=== PATIENT | male | born 1970 | race Caucasian/White ===

== ENCOUNTER 2016-12-25 06:33 | Emergency (ER) | payer BC, OTHER ==
[2016-12-25] MEDS ORDERED: MECLIZINE 12.5 MG TAB PO STA (07:40)
--- NOTE | 2016-12-25 07:45 | ED ---
Dizziness HPI - General Chief Complaint: Dizziness Stated Complaint: Dizziness Time Seen by Provider: 12/25/16 06:59 Source: patient, RN notes reviewed Mode of arrival: ambulatory Limitations: no limitations - History of Present Illness Initial Comments: This patient is a 46-year-old man who is complaining of what he is referring to as lightheadedness. In attempt to clarify that his symptoms, the patient was asked if she feels like he is going to pass out or his vision changes any states that no he does not feel like this, it is more of an off balance type of feeling. The patient states that it has come on over the past day, or perhaps to. The patient states that symptoms are mainly present when he sits up or looks up. He states he'll feel off balance, what he is calling lightheaded, though by his history seems more consistent with vertigo. The symptoms are better if he is lying still, and again provoked by position change. Patient states that about a week ago he did have preceding "head cold" with some congestion of his left ear. He states that the symptoms seem to be improving. MD Complaint: dizziness -: days(s) Timing: gradual onset Description: sense of movement, off-balance History of Same: No History of Trauma: No Severity: moderate Improves With: remaining still Worsens With: movement, position Associated Symptoms: denies other symptoms - Related Data Previous Rx's Medication Instructions Recorded Meclizine [Antivert] 25 mg PO TID #30 tab 12/25/16 Allergies Allergy/AdvReac Type Severity Reaction Status Date / Time tetracycline AdvReac Intermediate Anaphylaxis Verified 12/25/16 06:51 Review of Systems ROS Statement: Those systems with pertinent positive or pertinent negative responses have been documented in the HPI. ROS Other: All systems not noted in ROS Statement are negative. Constitutional: Denies: fever, chills, weakness Eyes: Denies: eye pain, vision change ENT: Reports: as per HPI. Denies: ear pain, throat pain, hearing loss, congestion Respiratory: Denies: cough, dyspnea, wheezes Cardiovascular: Denies: chest pain, palpitations, edema, syncope Gastrointestinal: Denies: abdominal pain, vomiting, diarrhea Musculoskeletal: Denies: back pain Skin: Denies: rash Neurological: Reports: vertigo. Denies: headache, weakness, numbness, confusion Past Medical History Past Medical History: Hypertension History of Any Multi-Drug Resistant Organisms: None Reported Past Psychological History: No Psychological Hx Reported Smoking Status: Never smoker Past Alcohol Use History: Occasional Past Drug Use History: None Reported General Exam Limitations: no limitations General appearance: alert, in no apparent distress Head exam: Present: atraumatic, normocephalic, normal inspection Eye exam: Present: normal appearance, PERRL, EOMI. Absent: scleral icterus, conjunctival injection ENT exam: Present: normal oropharynx, mucous membranes moist, TM's normal bilaterally, normal external ear exam Neck exam: Present: normal inspection, full ROM. Absent: tenderness, meningismus Respiratory exam: Present: normal lung sounds bilaterally. Absent: respiratory distress, wheezes, rales, rhonchi, stridor Cardiovascular Exam: Present: regular rate, normal rhythm, normal heart sounds. Absent: systolic murmur, diastolic murmur, rubs, gallop GI/Abdominal exam: Present: soft. Absent: distended, tenderness, guarding, rebound, mass, pulsatile mass, hernia Extremities exam: Present: normal inspection, normal capillary refill. Absent: pedal edema, calf tenderness Back exam: Present: normal inspection. Absent: CVA tenderness (R), CVA tenderness (L) Neurological exam: Present: alert, oriented X3, CN II-XII intact. Absent: motor sensory deficit Skin exam: Present: warm, dry, intact, normal color. Absent: rash Course Vital Signs 12/25/16 12/25/16 12/25/16 06:39 07:47 09:13 Temperature 97.0 F L 97.9 F Pulse Rate 56 L 52 L 52 L Respiratory 20 18 16 Rate Blood Pressure 162/85 141/88 138/87 O2 Sat by Pulse 98 96 98 Oximetry EKG Findings - EKG Results: EKG: interpreted by MARTI BANKS, sinus rhythm, normal axis, normal QRS, normal ST/ T, no acute changes EKG shows: bradycardia (Rates 53 bpm) Medical Decision Making - Lab Data Result diagrams: 12/25/16 06:54 12/25/16 06:54 Lab Results 12/25/16 12/25/16 Range/Units 06:54 06:54 WBC 5.6 (3.8-10.6) k/uL RBC 4.86 (4.30-5.90) m/uL Hgb 14.4 (13.0-17.5) gm/dL Hct 42.6 (39.0-53.0) % MCV 87.6 (80.0-100.0) fL MCH 29.7 (25.0-35.0) pg MCHC 33.9 (31.0-37.0) g/dL RDW 12.8 (11.5-15.5) % Plt Count 172 (150-450) k/uL Neutrophils % 62 % Lymphocytes % 27 % Monocytes % 5 % Eosinophils % 4 % Basophils % 1 % Neutrophils # 3.5 (1.3-7.7) k/uL Lymphocytes # 1.5 (1.0-4.8) k/uL Monocytes # 0.3 (0-1.0) k/uL Eosinophils # 0.2 (0-0.7) k/uL Basophils # 0.1 (0-0.2) k/uL Sodium 139 (137-145) mmol/L Potassium 4.1 (3.5-5.1) mmol/L Chloride 105 (98-107) mmol/L Carbon Dioxide 23 (22-30) mmol/L Anion Gap 11 mmol/L BUN 15 (9-20) mg/dL Creatinine 0.90 (0.66-1.25) mg/dL Est GFR (MDRD) Af Amer >60 (>60 ml/min/1.73 sqM) Est GFR (MDRD) Non-Af >60 (>60 ml/min/1.73 sqM) Glucose 96 (74-99) mg/dL Calcium 9.1 (8.4-10.2) mg/dL Total Bilirubin 0.7 (0.2-1.3) mg/dL AST 23 (17-59) U/L ALT 35 (21-72) U/L Alkaline Phosphatase 48 (38-126) U/L Total Protein 7.1 (6.3-8.2) g/dL Albumin 4.1 (3.5-5.0) g/dL Disposition Clinical Impression: Vertigo Disposition: HOME SELF-CARE Condition: Fair Instructions: Vertigo (ED) Prescriptions: Meclizine [Antivert] 25 mg PO TID #30 tab Referrals: Walt Piña MD [Primary Care Provider] - 1-2 days
[2016-12-25 07:56] VITALS: PULSE 52
[2016-12-25 08:10] LABS: Basophils # (A) 0.1 k/uL (0-0.2); Basophils % (A) 1 %; CH 30.4; CHCM 34.8; Eosinophils # (A) 0.2 k/uL (0-0.7); Eosinophils % (A) 4 %; HCT 42.6 % (39.0-53.0); HDW 2.48; HGB 14.4 gm/dL (13.0-17.5); Luc # (Auto) 0.12; Luc % (Auto) 2; Lymphocytes # (A) 1.5 k/uL (1.0-4.8); Lymphocytes % (A) 27 %; MCH 29.7 pg (25.0-35.0); MCHC 33.9 g/dL (31.0-37.0); MCV 87.6 fL (80.0-100.0); Monocytes # (A) 0.3 k/uL (0-1.0); Monocytes % (A) 5 %; Neutrophils # (A) 3.5 k/uL (1.3-7.7); Neutrophils % (A) 62 %; RBC 4.86 m/uL (4.30-5.90); RDW 12.8 % (11.5-15.5); WBC 5.6 k/uL (3.8-10.6); WBC (Perox) 5.64
--- NOTE | 2016-12-25 08:16 | CT ---
EXAMINATION TYPE: CT brain wo con DATE OF EXAM: 12/25/2016 8:09 AM COMPARISON: NONE HISTORY: Dizziness for 24 hours. History of HTN. CT DLP: 1098.80 mGycm Automated exposure control for dose reduction was used. FINDINGS: There is no acute intracranial hemorrhage, mass effect, or midline shift identified. The ventricles and sulci are within normal limits in size. The globes are intact and the visualized sinuses are philly ar. IMPRESSION: No acute intracranial hemorrhage, mass effect, or midline shift is seen.
[2016-12-25 08:19] LABS: ALT 35 U/L (21-72); AST 23 U/L (17-59); Alkaline Phosphatase 48 U/L (38-126); Anion Gap 11 mmol/L; Blood Urea Nitrogen 15 mg/dL (9-20); Calcium 9.1 mg/dL (8.4-10.2); Carbon Dioxide 23 mmol/L (22-30); Chloride 105 mmol/L (98-107); Glucose 96 mg/dL (74-99); Non-African American GFR(MDRD) >60 (>60 ml/min/1.73 sqM); Potassium 4.1 mmol/L (3.5-5.1); Sodium 139 mmol/L (137-145); Total Bilirubin 0.7 mg/dL (0.2-1.3); Total Protein 7.1 g/dL (6.3-8.2)
[2016-12-25 09:15] VITALS: BP 138/87; RESP 16; TEMP 97.9
== END 2016-12-25 09:15 | disposition home or self-care (01) ==
LOC: EC 06:33
DX: R42 Dizziness and giddiness (principal); Z86.79 Personal history of other diseases of the circulatory system
CPT/HCPCS: 36415; 70450; 80053; 85025; 93005; 99284

== ENCOUNTER → 2017-02-22 | Outpatient (CLI) | payer OTHER ==
--- NOTE | 2017-02-22 18:40 | CONS ---
DATE OF CONSULTATION: Primary care physician is Dr. Piña Referring physician: Dr. Paez. 46-year-old male patient referred to me due to concern of obstructive sleep apnea. He has loud snoring and he has been told to stop breathing by his . He goes to bed around 9:00 p.m., wakes up at 6:00 a.m. in the morning. 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 Never feel asleep while driving. [place] score is 7. He has hypertension, chronic anxiety/depression under treatment. No nocturia. No sleep walking or sleeptalking. No waking up in the middle of the night for gasping for air. No palpitations. No heartburn. No dry mouth. PAST MEDICAL HISTORY: Obesity, hypertension, anxiety, depression. PAST SURGICAL HISTORY: Tonsillectomy. DRUG ALLERGIES ARE NOT KNOWN OTHER THAN TETRACYCLINE POSITIVE FOR TETRACYCLINE. Outpatient medication includes: 1. Citalopram. 2. Norvasc. FAMILY HISTORY: Negative for sleep apnea. SOCIAL HISTORY: Nonsmoker. No history of alcoholism. No history of IV drugs. REVIEW OF SYSTEMS: Twelve-point review of systems was done and positive findings were all mentioned above in the history of present illness. Otherwise negative. BP is 140/81, pulse 78, respirations 16, temperature 97.4. BMI is 38.3. Weight is 295. Height is 6 feet 1 inch. Neck size 18-1/2. GENERAL APPEARANCE: Obese, calm, comfortable. HEENT: Short neck, crowding posterior pharynx. There is no goiter or neck masses. Mallampati class IV. LUNGS: Clear to auscultation. HEART: Sounds are regular rate and rhythm. Normal S1, S2. ABDOMEN: Soft, nontender. No organomegaly. EXTREMITIES: No edema, cyanosis, or clubbing. IMPRESSION: 1. Obstructive sleep apnea suspected, currently under investigation. 2. Hypertension. 3. Obesity; body mass index of 38.3. 4. Anxiety/depression. PLAN: 1. Weight loss. 2. Proceed with a screening polysomnogram. 3. Further recommendations are to follow based on the findings.
== END | disposition home or self-care (01) ==
LOC: SLEEP 14:55
PROVIDERS: ATTEND Internal Medicine Critical Care Medicine
DX: G47.33 Obstructive sleep apnea (adult) (pediatric) (principal); I10 Essential (primary) hypertension; E66.9 Obesity, unspecified; Z68.38 Body mass index [BMI] 38.0-38.9, adult; F41.9 Anxiety disorder, unspecified; F32.9 Major depressive disorder, single episode, unspecified; Z88.1 Allergy status to other antibiotic agents; Z79.899 Other long term (current) drug therapy
CPT/HCPCS: 99211

== ENCOUNTER → 2019-07-11 | Outpatient (CLI) | payer BC ==
--- NOTE | 2019-07-11 11:57 | XR ---
EXAMINATION TYPE: XR knee complete RT DATE OF EXAM: 07/11/2019 CLINICAL HISTORY: Right knee pain for one month with no known injury TECHNIQUE: Three views of the right knee are obtained. COMPARISON: None. FINDINGS: There is no acute fracture/dislocation evident in right knee. The tri-compartment joint s paces appear aligned however superior patellar pole osteophyte is seen as well as a very small medial tibial plateau osteophyte. Extensor mechanism appears intact. No sizable suprapatellar joint effusio n. The overlying soft tissue appears unremarkable. IMPRESSION: There is no acute fracture or dislocation in the right knee. Mild bicompartmental arthro jose.
== END | disposition home or self-care (01) ==
LOC: RADXRMAIN 10:59
PROVIDERS: ATTEND Family Medicine
DX: M17.11 Unilateral primary osteoarthritis, right knee (principal)

== ENCOUNTER → 2019-09-05 | Outpatient (CLI) | payer BC ==
--- NOTE | 2019-09-05 18:50 | MR ---
EXAMINATION TYPE: MR knee RT wo con DATE OF EXAM: 09/05/2019 COMPARISON: Right knee x-ray July 11, 2019. HISTORY: Inner Pain in right knee x 4-5 months TECHNIQUE: Multiplanar, multisequence images of the knee is performed without IV contrast. FINDINGS: MEDIAL MENISCUS: Anterior and posterior horns are intact without tear. LATERAL MENISCUS: Anterior and posterior horns are intact without tear. CRUCIATE LIGAMENTS: The anterior and posterior cruciate ligaments are intact and unremarkable. COLLATERAL LIGAMENTS: The medial collateral ligament and lateral collateral ligament complex are inta ct. Mild fluid signal surrounds medial collateral ligament particularly proximal fibers coronal image 22. EXTENSOR MECHANISM: Visualized quadriceps and patellar tendons are intact. Some spurring from the ant erior superior patella at distal quadriceps tendon attachment. EFFUSION: No significant suprapatellar joint effusion. POPLITEAL CYST: Small to tiny popliteal/demarco cyst axial image 11. TRICOMPARTMENT SPACES: Tricompartment Joint spaces are fairly well-maintained. No significant spurrin g is seen. CARTILAGE: Tricompartment articular cartilage is preserved. BONE MARROW SIGNAL: No focal abnormal marrow signal is appreciated. OTHER: Some cystic change in the posterior lateral deep subcutaneous tissue seen best sagittal image 5 with some ill-defined fluid surrounding the inferior cystic lesion level of the distal lateral femo ral condyle. Consider additional synovial cysts. IMPRESSION: No meniscal or ligamentous tear is seen. Posterolateral synovial cysts noted. Mild MCL sp rain injury.
== END | disposition home or self-care (01) ==
LOC: RADMRIMAIN 18:05
PROVIDERS: ATTEND Family Medicine
DX: S83.411A Sprain of medial collateral ligament of right knee, initial encounter (principal); M71.38 Other bursal cyst, other site